=== PATIENT | female | born 1970 | race Caucasian/White ===

== ENCOUNTER 2019-08-28 11:16 | Inpatient (IN) | payer MEDICAID ==
[~2019-08-28] VITALS: Ht 152.4 cm; Wt 59.0 kg
[2019-08-28] MEDS ORDERED: ACETAMINOPHEN 325MG TABLET PO STA (13:22)
[2019-08-28] MEDS ORDERED: PROPRANOLOL HCL 1MG/ML AMPULE IV ONE (13:30)
[2019-08-28] MEDS ORDERED: SODIUM CHLORIDE 0.9% 1000ML BAG (SEPSIS BOLUS) IV ONE (13:30)
[2019-08-28] MEDS ORDERED: ONDANSETRON HCL 4MG/2ML INJ IV ONE (13:45)
[2019-08-28] MEDS ORDERED: PROPRANOLOL HCL 20MG TABLET PO ONE ×2 (13:45→14:30)
[2019-08-28 14:09] LABS: HEMATOCRIT. 41.5 % (36.0-48.0); HEMOGLOBIN. 14.4 g/dL (12.0-16.0); MEAN CORPUSCULAR HEMOGLOBIN 26.9 pg (28.0-32.0); MEAN CORPUSCULAR VOLUME 77.7 fL (81.0-99.0); MEAN PLATELET VOLUME 8.3 fl (7.4-10.4); PLATELET 461 x1000/uL (130-400); RED BLOOD CELL COUNT 5.34 mill/uL (4.2-5.4)
[2019-08-28 14:14] LABS: CHLORIDE 100 mEq/L (98-107); INR 1.3; PROTHROMBIN TIME 13.5 sec (9.6-11.0)
[2019-08-28 14:20] LABS: HCG SCREEN NEGATIVE
[2019-08-28 14:23] LABS: T4 FREE > 8.00 ng/dL (0.76-1.46)
[2019-08-28 14:38] LABS: NUCLEATED RED BLOOD CELLS 1 /100 WBC; PLATELET ESTIMATE INCREASED
[2019-08-28] MEDS ORDERED: HYDROCORTISONE SOD SUCCINATE 100 MG/2 ML VIAL IV SCH ×2 (15:15→22:00)
[2019-08-28] MEDS ORDERED: HYDROCORTISONE SOD SUCCINATE 1MG/ML 1ML INJ SYR(NEO) IV ONE (15:15)
[2019-08-28] MEDS ORDERED: PROPYLTHIOURACIL 50MG TABLET PO SCH (16:00)
[2019-08-28] MEDS ORDERED: PROPRANOLOL HCL 20MG TABLET PO SCH ×2 (16:00→22:00)
[2019-08-28 16:05] LABS: CLARITY URINE CLOUDY (CLEAR); COLOR URINE DARK YELLOW (YELLOW); KETONES URINE 2+ (NEGATIVE); LEUKOCYTE ESTERASE URINE NEGATIVE (NEGATIVE); NITRITE URINE NEGATIVE (NEGATIVE); OCCULT BLOOD URINE TRACE (NEGATIVE); PROTEIN URINE 2+ (NEGATIVE); SPECIFIC GRAVITY URINE 1.026 (1.005-1.030)
[2019-08-28] MEDS ORDERED: POTASSIUM IODIDE/IODINE 20ML PO SCH (16:30)
[2019-08-28] MEDS ORDERED: HYDROCODONE/ACETAMINOPHEN 5/325MG TABLET PO SCH (16:30)
[2019-08-28] MEDS ORDERED: CEFTRIAXONE 1 G PREMIX 50 ML IV ONE (16:30)
[2019-08-28] MEDS ORDERED: LEVOFLOXACIN 500MG PREMIX 100 ML IV ONE (17:15)
[2019-08-28] MEDS: PROPYLTHIOURACIL 50MG TABLET PO SCH (22:09)
[2019-08-28] MEDS: POTASSIUM IODIDE/IODINE 20ML PO SCH (23:11)
[2019-08-29] MEDS: DEXAMETHASONE 4MG/ML 1ML VIAL IV SCH ×4 (01:09→22:55)
[2019-08-29] MEDS ORDERED: CLONIDINE 0.1MG TABLET PO PRN (13:45)
[2019-08-29] MEDS ORDERED: LACTULOSE 20G/30ML UDC PO PRN (13:45)
[2019-08-29] MEDS ORDERED: IPRATROPIUM/ALBUTEROL 0.5-3(2.5)MG/3ML NEB HHN PRN (13:45)
[2019-08-29] MEDS ORDERED: GUAIFENESIN 200MG/10ML SUGAR FREE UDC PO PRN (13:45)
[2019-08-29] MEDS ORDERED: ONDANSETRON HCL 4MG/2ML INJ IV PRN (13:45)
[2019-08-29] MEDS ORDERED: HYDROCODONE/ACETAMINOPHEN 5/325MG TABLET PO PRN (13:45)
[2019-08-29] MEDS ORDERED: LORAZEPAM 2MG/ML CPJ IV PRN (13:45)
[2019-08-29] MEDS ORDERED: DIPHENHYDRAMINE 50MG/ML VIAL IV PRN (13:45)
[2019-08-29] MEDS: PROPYLTHIOURACIL 50MG TABLET PO SCH ×3 (14:00→22:55)
[2019-08-29 14:04] VITALS: BP 133/65
[2019-08-29] MEDS: FAMOTIDINE 20MG/2ML VIAL IV SCH (14:43)
[2019-08-29] MEDS: POTASSIUM IODIDE/IODINE 20ML PO SCH ×2 (15:00→22:56)
[2019-08-29] MEDS: LEVOFLOXACIN 500MG PREMIX 100 ML IV SCH (18:24)
[2019-08-29] MEDS: PROPRANOLOL HCL 20MG TABLET PO SCH ×2 (18:25→23:33)
[2019-08-29 20:00] VITALS: BP 146/65
[2019-08-30] VITALS: BP 143/61
[2019-08-30 04:00] VITALS: BP 126/61
[2019-08-30] MEDS: PROPYLTHIOURACIL 50MG TABLET PO SCH ×4 (05:03→23:20)
[2019-08-30] MEDS: PROPRANOLOL HCL 20MG TABLET PO SCH ×4 (05:03→23:19)
[2019-08-30] MEDS: DEXAMETHASONE 4MG/ML 1ML VIAL IV SCH ×4 (05:03→23:18)
[2019-08-30] MEDS: POTASSIUM IODIDE/IODINE 20ML PO SCH ×3 (05:04→23:18)
[2019-08-30 06:58] LABS: HEMATOCRIT 35.3 % (36.0-48.0); HEMOGLOBIN 12.6 g/dL (12.0-16.0); MEAN CORPUSCULAR HEMOGLOBIN 27.5 pg (28.0-32.0); MEAN CORPUSCULAR VOLUME 77.3 fL (81.0-99.0); PLATELET 427 x1000/uL (130-400); RED BLOOD CELL COUNT 4.57 mill/uL (4.2-5.4)
[2019-08-30 07:06] LABS: CHLORIDE 112 mEq/L (98-107)
[2019-08-30 08:00] VITALS: BP 143/70
[2019-08-30] MEDS: FAMOTIDINE 20MG/2ML VIAL IV SCH (08:54)
[2019-08-30 12:00] VITALS: BP 142/61
[2019-08-30] MEDS ORDERED: MECLIZINE 25MG TABLET PO NR (13:30)
[2019-08-30] MEDS ORDERED: MECLIZINE 25MG TABLET PO PRN (13:30)
[2019-08-30 16:00] VITALS: BP 138/71
[2019-08-30] MEDS: LEVOFLOXACIN 500MG PREMIX 100 ML IV SCH (18:19)
[2019-08-30 20:00] VITALS: BP 123/64
[2019-08-31] VITALS: BP 140/60
[2019-08-31 04:00] VITALS: BP 143/69
[2019-08-31] MEDS: POTASSIUM IODIDE/IODINE 20ML PO SCH ×4 (06:08→21:37)
[2019-08-31] MEDS: DEXAMETHASONE 4MG/ML 1ML VIAL IV SCH ×2 (06:08→11:29)
[2019-08-31] MEDS: PROPRANOLOL HCL 20MG TABLET PO SCH ×3 (06:09→17:21)
[2019-08-31] MEDS: PROPYLTHIOURACIL 50MG TABLET PO SCH ×4 (06:10→21:23)
[2019-08-31 08:00] VITALS: BP 135/55
[2019-08-31 08:22] LABS: HEMOGLOBIN 12.3 g/dL (12.0-16.0); MEAN CORPUSCULAR VOLUME 76.8 fL (81.0-99.0); PLATELET 410 x1000/uL (130-400); RED BLOOD CELL COUNT 4.55 mill/uL (4.2-5.4); RED CELL DISTRIBUTION WIDTH 12.4 % (11.6-14.6)
[2019-08-31 08:57] LABS: CHLORIDE 113 mEq/L (98-107)
[2019-08-31 09:09] LABS: T4 FREE 4.02 ng/dL (0.76-1.46)
[2019-08-31] MEDS: FAMOTIDINE 20MG TABLET PO SCH (09:53)
[2019-08-31] MEDS ORDERED: LEVOFLOXACIN 250MG PREMIX 50 ML IV SCH (14:00)
[2019-08-31 16:00] VITALS: BP 132/67
[2019-08-31] MEDS: DEXAMETHASONE 2MG TABLET PO SCH (17:20)
[2019-08-31] MEDS ORDERED: DEXAMETHASONE 4MG/ML 1ML VIAL PO SCH (18:00)
[2019-08-31 20:30] VITALS: BP 142/55
[2019-09-01 00:34] VITALS: BP 143/72
[2019-09-01] MEDS: DEXAMETHASONE 2MG TABLET PO SCH ×2 (00:47→05:28)
[2019-09-01] MEDS: PROPRANOLOL HCL 20MG TABLET PO SCH ×4 (00:48→21:20)
[2019-09-01 04:00] VITALS: BP 156/67
[2019-09-01] MEDS: PROPYLTHIOURACIL 50MG TABLET PO SCH ×3 (05:28→21:20)
[2019-09-01] MEDS: POTASSIUM IODIDE/IODINE 20ML PO SCH ×3 (05:29→21:20)
[2019-09-01 08:00] VITALS: BP 117/66
[2019-09-01] MEDS: FAMOTIDINE 20MG TABLET PO SCH (09:27)
[2019-09-01 12:00] VITALS: BP 132/93
[2019-09-01] MEDS: LEVOFLOXACIN 500MG TABLET PO SCH (12:45)
[2019-09-01] MEDS: DEXAMETHASONE 1MG TABLET PO SCH ×2 (15:45→21:20)
[2019-09-01 16:00] VITALS: BP 126/79
[2019-09-01 20:00] VITALS: BP 134/67
[2019-09-01 22:11] LABS: T4 FREE 2.37 ng/dL (0.76-1.46)
[2019-09-02] VITALS: BP 137/72
[2019-09-02 04:00] VITALS: BP 145/68
[2019-09-02] MEDS: PROPRANOLOL HCL 20MG TABLET PO SCH ×2 (05:16→15:31)
[2019-09-02] MEDS: PROPYLTHIOURACIL 50MG TABLET PO SCH ×2 (05:16→15:31)
[2019-09-02] MEDS: DEXAMETHASONE 1MG TABLET PO SCH ×2 (05:16→15:31)
[2019-09-02] MEDS: POTASSIUM IODIDE/IODINE 20ML PO SCH ×2 (05:16→15:32)
[2019-09-02 08:00] VITALS: BP 148/73
[2019-09-02 08:23] LABS: HEMATOCRIT 39.4 % (36.0-48.0); HEMOGLOBIN 13.4 g/dL (12.0-16.0); MEAN CORPUSCULAR HEMOGLOBIN 26.4 pg (28.0-32.0); MEAN CORPUSCULAR VOLUME 77.3 fL (81.0-99.0); PLATELET 422 x1000/uL (130-400); RED CELL DISTRIBUTION WIDTH 12.4 % (11.6-14.6)
[2019-09-02 08:26] LABS: CHLORIDE 108 mEq/L (98-107)
[2019-09-02] MEDS: FAMOTIDINE 20MG TABLET PO SCH (09:52)
[2019-09-02 12:00] VITALS: BP 141/72
[2019-09-02] MEDS: LEVOFLOXACIN 500MG TABLET PO SCH (12:29)
[2019-09-02 16:10] VITALS: BP 135/68
[2019-09-02 16:52] VITALS: BP 135/68
== END 2019-09-02 17:35 | disposition home or self-care (01) | DRG 427 ==
LOC: ER 11:16 → EDBEDREQ 13:37 → EDBEDREQTM 15:36 → EDBEDREQSVC 15:36 → 5WST 08-29 04:56 → EDBEDREQDT 08-29 04:57 → EDBEDREQSVC 08-29 04:57 → EDBEDREQTM 08-29 04:57 → ENRESERV 08-29 07:53
PROVIDERS: ADMIT Internal Medicine; ATTEND Internal Medicine
DX: E05.01 Thyrotoxicosis with diffuse goiter with thyrotoxic crisis or storm (principal); E87.2 Acidosis; E44.0 Moderate protein-calorie malnutrition; G90.8 Other disorders of autonomic nervous system; I47.1 Supraventricular tachycardia; R73.9 Hyperglycemia, unspecified; T38.0X5A Adverse effect of glucocorticoids and synthetic analogues, initial encounter; I10 Essential (primary) hypertension; J06.9 Acute upper respiratory infection, unspecified; Z79.899 Other long term (current) drug therapy; Z88.0 Allergy status to penicillin; Y92.89 Other specified places as the place of occurrence of the external cause; Z68.42 Body mass index [BMI] 45.0-49.9, adult
CPT/HCPCS: 36415; 71045; 76536; 80048; 80053; 81003; 81025; 83605; 83880; 84145; 84439; 84443; 84481; 84484; 84703; 85025; 85027; 87804; 93005; 93970; 96361; 96365; 96375; 99291; J1100; J1720; J1800; J1956; J2405; J3490; J7030; J8540; J8597; A4315